=== PATIENT | male | born 1980 | race Caucasian/White ===

== ENCOUNTER 2017-03-20 07:03 | Emergency (ER) | payer BC ==
[~2017-03-20] VITALS: Ht 180.3 cm; Wt 100.0 kg
[~2017-03-20 07:03] MED LIST: COLCRYS0.6 MG PO; DILAUDID 2MG TAB2 MG PO; FLEXERIL 1010 MG/TAB PO; GOUT MED; HCTZ 25MG TAB25 MG PO; INDOCIN50 MG PO; NORCO 325 MG-51 TAB PO; PYRIDIUM 100MG100 MG PO; ULTRAM 50MG TAB50 MG PO; ZYLOPRIM 300MG300 MG PO
[2017-03-20 07:06] VITALS: TEMP 98.5
[2017-03-20 08:08] LABS: BASO # 0.1 (0.0-0.2); BASO % 0.6 % (0.0-2.0); EOS # 0.1 (0.0-0.7); EOS % 1.6 % (0-4.0); GRAN # 4.5 (1.4-6.5); GRAN % 57.5 % (42.2-75.2); HEMATOCRIT 42.7 % (42.0-52.0); LYMPH # 2.7 (1.2-3.4); LYMPH % 34.2 % (20.0-51.0); MEAN CELL VOLUME 87 fl (80.0-100.0); MEAN CORPUSCULAR HEMOGLOBIN 31 pg (27.0-31.0); MEAN CORPUSCULAR HGB CONC 35 g/dl (33.0-37.0); MEAN PLATELET VOLUME 9.5 fl (7.4-10.4); MONO # 0.5 (0.1-0.6); MONO % 5.8 % (1.7-9.3); PLATELET COUNT 309 K/mm3 (130-400); RED BLOOD COUNT 4.89 M/mm3 (4.20-5.60); WHITE BLOOD COUNT 7.9 K/mm3 (4.8-10.8)
[2017-03-20 08:19] LABS: PH 5 (5-8); SQUAMOUS EPITHELIAL None Seen /hpf; URINE APPEARANCE Clear; URINE BACTERIA None Seen /hpf; URINE BILIRUBIN Negative (NEGATIVE); URINE BLOOD 3+ (NEGATIVE); URINE COLOR Yellow; URINE GLUCOSE Negative (NEGATIVE); URINE KETONE Negative (NEGATIVE); URINE RBC >50 /hpf; URINE UROBILINOGEN Negative (NEGATIVE)
[2017-03-20 08:31] LABS: ALBUMIN 4.7 gm/dL (3.5-5.0); BILIRUBIN,TOTAL 0.7 mg/dL (0.0-1.0); CALCIUM 9.6 mg/dL (8.4-10.2); CREATININE, serum 0.93 mg/dL (0.66-1.25); POTASSIUM 4.2 mmol/L (3.4-5.0); TOTAL PROTEIN 7.6 gm/dL (6.4-8.2)
[2017-03-20] MEDS ORDERED: NORCO 325 MG-51 TAB PO (09:24)
[2017-03-20] MEDS ORDERED: FLOMAX 0.40.4 MG/CAP PO (09:24)
[2017-03-20 10:11] VITALS: BP 120/69; PULSE 70
== END 2017-03-20 10:09 | disposition home or self-care (01) ==
LOC: COL.ER 07:03
PROVIDERS: Nurse Practitioner
DX: N20.2 Calculus of kidney with calculus of ureter (principal); Z87.442 Personal history of urinary calculi; Z86.39 Personal history of other endocrine, nutritional and metabolic disease
CPT/HCPCS: J1885; J2405; J7030

== ENCOUNTER 2021-06-25 15:27 | Day surgery (SDC) | payer SELFPAY ==
[~2021-06-25] VITALS: Ht 180.3 cm; Wt 111.8 kg
[~2021-06-25 15:27] MED LIST changes: +FLOMAX 0.40.4 MG/CAP PO
[2021-06-25 15:52] VITALS: BP 161/84; PULSE 80; TEMP 97.2
[2021-06-25] MEDS ORDERED: LEXAPRO 10MG10 MG PO (15:57)
[2021-06-25] MEDS ORDERED: MOTRIN 800800 MG/TAB PO (15:57)
[2021-06-25] MEDS ORDERED: PERC2.5TAB (15:59)
[2021-06-25 20:25] VITALS: BP 172/103; PULSE 68; TEMP 98.8
[2021-06-25 20:40] VITALS: TEMP 98
[2021-06-25 20:45] VITALS: BP 180/69; PULSE 65
[2021-06-25 20:53] VITALS: BP 153/90; PULSE 70
[2021-06-25 21:00] VITALS: BP 143/89; PULSE 70
--- NOTE | 2021-06-25 21:10 | NUR ---
2020 Report received from Laxmi [employer]. 2024 Pt transferred to [place] [id number] via cart and this RN assist. Monitors on and alarms set. Call light within reach. present in room. Pt denies pain or nausea. Pt complains of strings with stent. Pt understands purpose of this. Pt requests Pepsi and applesauce. 2034 Pt taking food and drink well. No complications voiced. 2054 Discharge instructions given to pt and . All questions answered to their satisfaction. Handed to them are a thank you card and discharge information. 2109 Pt transferred out of hospital via wheelchair and this RN assist to private vehicle driven by .
== END 2021-06-25 21:10 | disposition home or self-care (01) ==
LOC: SDCO 15:27
DX: N13.2 Hydronephrosis with renal and ureteral calculous obstruction (principal); Z20.822 Contact with and (suspected) exposure to COVID-19; F41.9 Anxiety disorder, unspecified; Z79.899 Other long term (current) drug therapy
CPT/HCPCS: C1769; C2617; J0690; J1100; J1885; J2270; J2405; J2704; J3010; J7120; Q9967